=== PATIENT | female | born 1995 | race Caucasian/White ===

== ENCOUNTER 2017-11-08 11:58 | Emergency (ER) | payer OTHER ==
[2017-11-08 13:25] VITALS: BP 112/67
--- NOTE | 2017-11-08 13:48 | UC ---
Respiratory Complaint HPI - HPI Summary HPI Summary: 22 yo female with chronic nasal congestion due to allergies presents with marked worsening of symptoms x 4 days with facial pressure an pain as well as post nasal drip feels ill/fatigue hx sinusitis has seen ENT re frequent sinus infection no chronic non sedating antihistamine - History of Current Complaint Chief Complaint: UCRespiratory Stated Complaint: SINUS Time Seen by Provider: 11/08/17 13:30 Hx Obtained From: Patient Hx Last Menstrual Period: unknown Onset/Duration: Gradual Onset, Lasting Weeks, Worse Since - 4 days Timing: Constant Severity Initially: Mild Severity Currently: Moderate Pain Intensity: 2 Pain Scale Used: 0-10 Numeric Character: Cough: Nonproductive Associated Signs And Symptoms: Positive: Nasal Congestion, Sinus Discomfort - Allergies/Home Medications Allergies/Adverse Reactions: Allergies Allergy/AdvReac Type Severity Reaction Status Date / Time No Known Allergies Allergy Verified 11/08/17 13:19 Home Medications: Home Medications Bcp 1 tab PO DAILY 11/08/17 [History] Fexofenadine (NF) [Leann 180 (NF)] 180 mg PO DAILY 11/08/17 [History Confirmed 11/08/17] Ibuprofen TAB* [Advil TAB*] 400 mg PO Q6H PRN 11/08/17 [History Confirmed ] PMH/Surg Hx/FS Hx/Imm Hx Previously Healthy: Yes - Surgical History Surgical History: None - Family History Known Family History: Positive: Hypertension - Social History Alcohol Use: None Substance Use Type: None Smoking Status (MU): Never Smoked Tobacco Review of Systems Constitutional: Fatigue Skin: Negative Eyes: Negative ENT: Nasal Discharge, Sinus Congestion, Sinus Pain/Tenderness Respiratory: Cough Cardiovascular: Negative Gastrointestinal: Negative Genitourinary: Negative Motor: Negative Neurovascular: Negative Musculoskeletal: Negative Neurological: Negative Psychological: Negative Is Patient Immunocompromised?: No All Other Systems Reviewed And Are Negative: Yes Physical Exam Triage Information Reviewed: Yes Appearance: Well-Appearing, No Pain Distress, Well-Nourished Vital Signs: Initial Vital Signs Temp 99 F 11/08/17 13:21 Pulse 66 11/08/17 13:21 Resp 20 11/08/17 13:21 BP 112/67 11/08/17 13:21 Pulse Ox 100 11/08/17 13:21 Vital Signs Reviewed: Yes Eyes: Positive: Conjunctiva Clear ENT: Positive: Hearing grossly normal, Pharyngeal erythema, Nasal congestion, Nasal drainage, TMs normal, Sinus tenderness, Uvula midline. Negative: Tonsillar swelling, Tonsillar exudate, Trismus, Muffled voice, Hoarse voice, Dental tenderness Dental Exam: Normal Neck: Positive: Supple, Nontender, No Lymphadenopathy Respiratory: Positive: Lungs clear, Normal breath sounds, No respiratory distress, No accessory muscle use Cardiovascular: Positive: RRR, No Murmur Musculoskeletal: Positive: ROM Intact, No Edema Neurological: Positive: Alert Psychological Exam: Normal Skin Exam: Normal UC Diagnostic Evaluation - Laboratory O2 Sat by Pulse Oximetry: 100 - normal/not hypoxic Respiratory Course/Dx - Differential Dx/Diagnosis Provider Diagnoses: acute sinusitis Discharge - Discharge Plan Condition: Stable Disposition: HOME Prescriptions: Amoxicillin PO (*) [Amoxicillin 875 MG (*)] 875 mg PO BID #20 tab Patient Education Materials: Sinusitis (ED) Referrals: No Primary Care Phys,NOPCP [Primary Care Provider] - Additional Instructions: warm facial compresses saline nasal spray twice daily recheck next week if not better recheck for new or worsening symptoms
== END 2017-11-08 13:48 | disposition home or self-care (01) ==
LOC: UCCORT 11:58
DX: J01.90 Acute sinusitis, unspecified (principal)
CPT/HCPCS: 99202; G0463